=== PATIENT | male | born 1945 | race Caucasian/White ===

== ENCOUNTER 2022-12-30 15:44 | Observation (INO) | payer MEDICARE, OTHER ==
[2022-12-30] VITALS (9 sets, daily range): BP systolic 132–156; BP diastolic 50–75
[~2022-12-30] VITALS: Ht 180.3 cm; Wt 115.9 kg
[2022-12-30] MEDS ORDERED: NS IV 1000 ML 1,000 ML IV STA (16:02)
[2022-12-30 16:15] LABS: BASOPHILS # (AUTO) 0.1 10^3/uL (0.0-0.1); BASOPHILS % (AUTO) 1 % (0-10); EOSINOPHILS # (AUTO) 0.4 10^3/uL (0.0-0.3); EOSINOPHILS % (AUTO) 6 % (0-10); HEMATOCRIT 41 % (40-54); HEMOGLOBIN 13.8 g/dL (13.3-17.7); LYMPHOCYTES # (AUTO) 1.3 10^3/uL (1.0-4.0); LYMPHOCYTES % (AUTO) 22 % (12-44); MEAN CORPUSCULAR HEMOGLOBIN 29 pg (25-34); MEAN CORPUSCULAR HGB CONC 34 g/dL (32-36); MEAN CORPUSCULAR VOLUME 88 fL (80-99); MEAN PLATELET VOLUME 9.9 fL (9.0-12.2); MONOCYTES # (AUTO) 0.4 10^3/uL (0.0-1.0); MONOCYTES % (AUTO) 7 % (0-12); NEUTROPHILS # (AUTO) 3.9 10^3/uL (1.8-7.8); NEUTROPHILS % (AUTO) 64 % (42-75); PLATELET COUNT 201 10^3/uL (130-400); WHITE BLOOD COUNT 6.1 10^3/uL (4.3-11.0)
[2022-12-30 16:22] LABS: PROTHROMBIN TIME PATIENT 13.9 SEC (12.2-14.7)
--- NOTE | 2022-12-30 16:26 | ED General ---
General Stated Complaint: FATIGUE,SOB,COUGH Source of Information: Patient, Old Records (prior ECG tracings from [facility]), Spouse History of Present Illness Date Seen by Provider: Dec 30, 2022 Time Seen by Provider: 15:48 Initial Comments 77-year-old male presenting with complaints of not feeling well for the last week. He states he has had fatigue and shortness of breath with occasional cough. He did have 2 episodes of diarrhea earlier this morning. While coughing he had some central and right-sided chest pain this morning. This resolved when he stopped coughing. He denies having fever, chills, nausea, vomiting, blood in his stool, blood in his urine. He has a history of high blood pressure and takes lisinopril, amlodipine, metoprolol for controlling that. He denies allergies to medications. He denies having any history of cardiac problems. He had been to urgent care last week because of the symptoms and they had performed an electrocardiogram as well as chest x-ray and COVID swab. He states that he was told that all looked okay and he was to follow-up with [facility] for additional evaluation. However when he called to get an appointment with her they did not have any openings until January so he went back today and they advised him to come to the emergency department for further testing beyond what they have. They were concerned that he might be having acute coronary syndrome causing his symptoms. Patient states he has no chest pain currently and is not feeling short of breath or coughing. He reports he does continue to feel fatigued and drained currently. Timing/Duration: 1 Week Severity: Moderate Associated Systoms: Chest Pain (this am with coughing), Cough; No Diaphoresis, No Fever/Chills, No Headaches; Loss of Appetite, Malaise; No Nausea/Vomiting, No Rash, No Seizure; Shortness of Air; No Syncope; Weakness (generalized) Allergies and Home Medications Allergies Coded Allergies: No Known Drug Allergies (Unverified , 12/30/22) Patient Home Medication List Home Medication List Reviewed: Yes Review of Systems Review of Systems Constitutional: No chills, No fever EENTM: no symptoms reported Respiratory: see HPI Cardiovascular: see HPI Gastrointestinal: see HPI, diarrhea (x 2 this am); No nausea, No vomiting Genitourinary: No dysuria Musculoskeletal: no symptoms reported Skin: No rash Psychiatric/Neurological: See HPI; Denies Headache Past Yderyua-Mmtwjr-Chxwbn Hx Patient Social History Tobacco Use?: No Use of E-Cig and/or Vaping dev: No Substance use?: No Past Medical History Surgery/Hospitalization HX: Hypertension Physical Exam Vital Signs Vital Signs - First Documented 12/30/22 15:47 Temp 36.7 Pulse 86 Resp 20 B/P (MAP) 156/46 (82) Pulse Ox 97 O2 Delivery Room Air Capillary Refill : Height, Weight, BMI Height: '" Weight: lbs. oz. kg; BMI Method: General Appearance: No Apparent Distress, WD/WN HEENT: PERRL/EOMI, Pharynx Normal Neck: Full Range of Motion, Normal Inspection, Non Tender, Supple Respiratory: Chest Non Tender, Lungs Clear, Normal Breath Sounds, No Accessory Muscle Use, No Respiratory Distress Cardiovascular: Regular Rate, Rhythm, Normal Peripheral Pulses, Systolic Murmur (2/6 murmur) Gastrointestinal: Normal Bowel Sounds, No Pulsatile Mass, Non Tender, Soft Rectal: Deferred Back: No CVA Tenderness Extremity: Normal Capillary Refill, Normal Inspection, No Pedal Edema Neurologic/Psychiatric: Alert, Oriented x3, acid pumper II-XII Norm as Tested Skin: Normal Color, Warm/Dry Progress/Results/Core Measures Suspected Sepsis SIRS Temperature: Pulse: Respiratory Rate: Laboratory Tests 12/30/22 16:03: White Blood Count 6.1 Blood Pressure / Mean: Laboratory Tests 12/30/22 16:03: Creatinine 1.98H, INR Comment 1.0, Platelet Count 201, Total Bilirubin 0.8 Results/Orders Lab Results Laboratory Tests Test 12/30/22 16:03 Range/Units White Blood Count 6.1 4.3-11.0 10^3/uL Red Blood Count 4.69 4.30-5.52 10^6/uL Hemoglobin 13.8 13.3-17.7 g/dL Hematocrit 41 40-54 % Mean Corpuscular Volume 88 80-99 fL Mean Corpuscular Hemoglobin 29 25-34 pg Mean Corpuscular Hemoglobin Concent 34 32-36 g/dL Red Cell Distribution Width 13.2 10.0-14.5 % Platelet Count 201 130-400 10^3/uL Mean Platelet Volume 9.9 9.0-12.2 fL Immature Granulocyte % (Auto) 0 % Neutrophils (%) (Auto) 64 42-75 % Lymphocytes (%) (Auto) 22 12-44 % Monocytes (%) (Auto) 7 0-12 % Eosinophils (%) (Auto) 6 0-10 % Basophils (%) (Auto) 1 0-10 % Neutrophils # (Auto) 3.9 1.8-7.8 10^3/uL Lymphocytes # (Auto) 1.3 1.0-4.0 10^3/uL Monocytes # (Auto) 0.4 0.0-1.0 10^3/uL Eosinophils # (Auto) 0.4 H 0.0-0.3 10^3/uL Basophils # (Auto) 0.1 0.0-0.1 10^3/uL Immature Granulocyte # (Auto) 0.0 0.0-0.1 10^3/uL Prothrombin Time 13.9 12.2-14.7 SEC INR Comment 1.0 0.8-1.4 Activated Partial Thromboplast Time 29 24-35 SEC Sodium Level 141 135-145 MMOL/L Potassium Level 4.1 3.6-5.0 MMOL/L Chloride Level 109 H 98-107 MMOL/L Carbon Dioxide Level 18 L 21-32 MMOL/L Anion Gap 14 5-14 MMOL/L Blood Urea Nitrogen 44 H 7-18 MG/DL Creatinine 1.98 H 0.60-1.30 MG/DL Estimat Glomerular Filtration Rate 35 BUN/Creatinine Ratio 22 Glucose Level 123 H 70-105 MG/DL Calcium Level 8.8 8.5-10.1 MG/DL Corrected Calcium 9.3 8.5-10.1 MG/DL Magnesium Level 2.5 H 1.6-2.4 MG/DL Total Bilirubin 0.8 0.1-1.0 MG/DL Aspartate Amino Transf (AST/SGOT) 15 5-34 U/L Alanine Aminotransferase (ALT/SGPT) 10 0-55 U/L Alkaline Phosphatase 67 40-136 U/L Troponin I 0.45 *H <0.30 NG/ML Pro-B-Type Natriuretic Peptide 67620.0 H <450.0 PG/ML Total Protein 6.7 6.4-8.2 GM/DL Albumin 3.4 3.2-4.5 GM/DL Lipase 22 8-78 U/L My Orders Orders - BILLY RIVERA MD Cbc With Automated Diff (12/30/22 16:02) Magnesium (12/30/22 16:02) Ekg Tracing (12/30/22 16:02) Comprehensive Metabolic Panel (12/30/22 16:02) Protime With Inr (12/30/22 16:02) Partial Thromboplastin Time (12/30/22 16:02) O2 (12/30/22 16:02) Monitor-Rhythm Ecg Trace Only (12/30/22 16:02) Ed Iv/Invasive Line Start (12/30/22 16:02) Lipase (12/30/22 16:02) Troponin I Fs (12/30/22 16:02) Probnp Fs (12/30/22 16:02) Ns Iv 1000 Ml (Sodium Chloride 0.9%) (12/30/22 16:02) Aspirin Chewable Tablet (Baby Aspirin Ch (12/30/22 16:39) Chest 1 View Ap/Pa Only (12/30/22 17:03) Furosemide Injection (Lasix Injection) (12/30/22 17:03) Ed Admission (Communication) (12/30/22 17:10) Vital Signs/I&O 12/30/22 12/30/22 12/30/22 15:47 15:47 15:47 Temp 36.7 Pulse 86 Resp 20 B/P (MAP) 156/46 (82) Pulse Ox 97 O2 Delivery Room Air Room Air Room Air Capillary Refill : Progress Note #1: Progress Note Potential diagnosis of myocardial infarction, hypertension, COVID, viral illness, electrolyte abnormality, renal failure, hepatic failure. Obtain electrocardiogram and place patient on cardiac cardiac monitor. On my personal interpretation and his initial cardiac cardiac monitor showed sinus rhythm with a heart rate in the 80s. His electrocardiogram showed a sinus rhythm without ST elevation. His blood pressure was 154/46. His oxygen saturation was 96 to 98% on room air and he was breathing 14-16 times a minute. He was not febrile in the emergency department. Will obtain peripheral IV access and send labs for complete blood count, comprehensive metabolic profile, coagulation factors, troponin, proBNP, magnesium. Since he had 2 chest x-rays within the last 5 or 6 days through [facility] and they read out as normal will defer x-ray for now. Administer normal saline 1 L IV fluid bolus for hydration since he did have some diarrhea today and has not been wanting to eat or drink in the last week. Progress Note #2: Time: 16:35 Progress Note Lab called to report that his troponin was elevated to 0.45. Complete blood count had a normal white blood cell count of 6.1 and hemoglobin 13.8 with platelets of 201. His coagulation factors were normal with a pro time of 13.9 and INR of 1 and a PTT of 29. His comprehensive metabolic profile did not show acute electrolyte abnormality other than he had elevated BUN of 44, creatinine 1.98 and glucose of 123. His lipase was normal at 22. His magnesium was slightly elevated to 2.5. Ordered aspirin 324 mg p.o. x1 with him having the elevation of his troponin. We will check with Dr. Arellano, the on-call sheet turner, about his elevated troponin and not feeling well for this last week. Will check with the patient to see if he has been told that he has renal insufficiency in the past or if his BUN and creatinine might be elevated due to dehydration. Progress Note #3: Progress Note Patient and spouse deny having any known history of renal insufficiency or heart failure. He did request that I speak with his crpojnma-ww-sub, Rochelle Espinoza, who is a nurse practitioner in [place]. Initially he was asking about being admitted and elevate the however when advised that he would likely be in the hospital just 24 to 48 hours and that in general insurance prefers to cover transport to the closest appropriate facility and he might end up with a larger financial responsibility if he went north. After reviewing these things with the patient and spouse they were agreeable to going to [place] and seeing Dr. Arellano and Dr. Au. I did advise him that if things changed or he had new symptoms or abnormal findings that he might require additional stay or treatment but initially hopefully things remained stable and he improves with treatment and could be discharged and 24 to 48 hours with follow-up. ECG Initial ECG Impression Date: Dec 30, 2022 Initial ECG Impression Time: 16:19 Initial ECG Rate: 86 Initial ECG Rhythm: Normal Sinus Initial ECG Comparisson: Changed (Prior tracings from [facility] had artifact and wander making them difficult to interpret. This one did not have artifact and wanter present) Comment On my personal interpretation and review of his electrocardiogram showed sinus rhythm with a heart rate of [address] interval [address] elevation. He had QT interval 373 ms and a QTc interval 417 ms. Overall appears improved from tracings done earlier today at [facility] showing artifact and baseline wander. Diagnostic Imaging Diagonstic Imaging: Xray Plain Films/CT/US/NM/MRI: chest Comments [facility] [place] NAME: ELISE ESPINOZA [facility] REC#: [id number] PT STATUS: REG ER : 1945 PHYSICIAN: BILLY RIVERA MD ADMIT DATE: 12/30/22/ER FS Draft Date of Exam:12/30/22 CHEST 1 VIEW AP/PA ONLY INDICATION: Shortness of breath. EXAM: Portable chest at 5:17 PM FINDINGS: The heart size and pulmonary vascularity are normal. The lungs are clear. There are no effusions or pneumothoraces. IMPRESSION: Negative chest. Dictated on workstation # [id number] Dict: 12/30/221718 Trans: 12/30/22 1724 [facility] [id number] Interpreted by: REINALDO ALLAN MD Electronically signed by: Reviewed: Reviewed by Me (I reviewed the radiologist report at [id number]) Departure Communication (Admissions) Time/Spoke to Admitting Phy: 17:[address] Au, the [facility] hospitalist, about the patient's presentation with illness over the last week, no ST elevation or acute ischemic changes on his EKG, shortness of breath. He now has findings for acute congestive heart failure and fluid overload. He has mild elevation of his troponin to 0.45 and his creatinine to 1.98. After discussion with sheet turner Dr. Zaragoza he is getting dose of Lasix to help with the elevated proBNP. It is felt that the heart failure may be the source for his mild elevation of troponin. Plan to admit for echocardiogram and serial cardiac enzymes and further cardiac monitoring as well as cardiology consult. Dr. Hunter did request an echocard iogram for tomorrow morning and make sure the patient is taking aspirin every day as well as metoprolol every day and get him started on Lasix as a diuretic every day. Patient already is taking metoprolol and aspirin every day. She accepted him for admission to cardiac stepdown bed. Time/Spoke to Consulting Phy: 17:[address] Arellano, sheet turner on-call for Danita Cordon. I reviewed the patient's presentation with him feeling well over the last week and having no acute ST elevation but did have a bump in his troponin to 0.45, proBNP was over 17,000, creatinine up to 1.98. He recommended giving Lasix of 60 mg IV now and continue Lasix daily. Obtain echocardiogram in the morning. Make sure he is taking metoprolol and aspirin daily. He already takes metoprolol 75 mg a day as well as a baby aspirin every day. He will follow the patient in consult with the [facility] service. Impression Primary Impression: Elevated troponin I level Additional Impressions: Acute kidney injury Acute congestive heart failure Qualified Codes: I50.9 - Heart failure, unspecified Disposition: 30 STILL A PATIENT Condition: Stable Admissions Decision to Admit Reason: Admit from ER (General) Decision to Admit/Date: Dec 30, 2022 Time/Decision to Admit Time: 17:08 Departure-Patient Inst. [place] [facility] [place] Primary Care Physician PIO DE LA CRUZ APRN (Family) Primary Care Physician BILLY RIVERA MD Dec 30, 2022 16:26
[2022-12-30 16:32] LABS: CALCIUM 8.8 MG/DL (8.5-10.1); CREATININE SERUM 1.98 MG/DL (0.60-1.30); MAGNESIUM 2.5 MG/DL (1.6-2.4); POTASSIUM 4.1 MMOL/L (3.6-5.0)
[2022-12-30 16:33] LABS: ALBUMIN 3.4 GM/DL (3.2-4.5); BILIRUBIN,TOTAL 0.8 MG/DL (0.1-1.0); TOTAL PROTEIN 6.7 GM/DL (6.4-8.2)
[2022-12-30] MEDS ORDERED: ASPIRIN 81 MG CHEW (CHILDREN'S ASA) PO STA (16:39)
[2022-12-30] MEDS ORDERED: FUROSEMIDE 40 MG/4 ML INJ (LASIX) IVP STA (17:03)
--- NOTE | 2022-12-30 17:24 | Diagnostic Imaging Report ---
INDICATION: Shortness of breath. EXAM: Portable chest at 5:17 PM FINDINGS: The heart size and pulmonary vascularity are normal. The lungs are clear. There are no effusions or pneumothoraces. IMPRESSION: Negative chest. Dictated by: Dictated on workstation # [id number]
[2022-12-30] MEDS ORDERED: NITROGLYCERIN 0.4 MG SL TABS BTL 25'S SL PRN (20:15)
[2022-12-30] MEDS ORDERED: ONDANSETRON 4 MG/2 ML (SDV) Z0FRAN IVP PRN (20:15)
[2022-12-30] MEDS ORDERED: PATIENT MAY USE OWN MEDS, ALL PO SCH (20:15)
[2022-12-31] VITALS (7 sets, daily range): BP systolic 119–147; BP diastolic 51–65
[2022-12-31 10:31] LABS: CALCIUM 8.5 MG/DL (8.5-10.1); CREATININE SERUM 1.93 MG/DL (0.60-1.30); POTASSIUM 4.3 MMOL/L (3.6-5.0)
[2022-12-31] MEDS ORDERED: LISI40TA9 PO (11:32)
[2022-12-31] MEDS ORDERED: METO50TA7 PO (11:32)
[2022-12-31] MEDS ORDERED: AMLO-251 PO (11:32)
--- NOTE | 2022-12-31 11:32 | History & Physical ---
HPI History of Present Illness: 77 yo male reports he came to the hospital because he was told to. he started not feeling well, initially thought he might have COVID, felt short of breath, low energy, no appetite. He had diarrhea as well. Next day he had similar symptoms. Went to urgent care and had EKG and CXR there that he reports were negative. STAFF DEVELOPMENT NURSE told him that though they hadn't found anything he had symptoms concerning for possible heart issues and suggested he see his primary, which he wasn't able to get into due to being closed. He was gasping for air, and when he checked his SpO2 at home it was 96-98, occasionally as low as 93%, so he felt reassured by that. When he called his primary they couldn't get him in until Feb 05 and so he saw someone else on Friday (yesterday) and reported things were okay, but repeated CXR and EKG, hasn't heard report of CXR but was told EKG was different from the one on Friday so he was sent to the ER in [place] where he was told he had heart failure. He denies history of renal problems, but clinic chart does list CKD3. Source: patient, family Date seen by provider: Dec 31, 2022 Time Seen by Provider: 11:30 Attending Physician [facility] PCP Admitting Physician: Taurus Au MD Attending Physician: Taurus Au MD Consult Date of Admission Dec 30, 2022 at 19:22 Home Medications Home Medications Reviewed patient Home Medication Reconciliation performed by pharmacy medication reconciliations windmill technician and/or nursing. Patients Allergies have been reviewed. 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 Broken ankle repair with growth plate involvement Family Medical History Significant Family History: Heart Disease (father angina), Cancer (brother colon cancer, mother metastatic breast cancer) Review of Systems ([facility]) Constitutional: No fever EENTM: No nose congestion, No throat pain Respiratory: short of breath Cardiovascular: No chest pain Gastrointestinal: No abdominal pain, No constipation; diarrhea (now resolved); No nausea, No vomiting Genitourinary: No dysuria Musculoskeletal: No joint pain, No muscle pain Skin: No rash Reviewed Test Results Reviewed Test Results Lab Laboratory Tests Test 12/30/22 16:03 12/30/22 20:54 12/31/22 10:05 Range/Units White Blood Count 6.1 4.3-11.0 10^3/uL Red Blood Count 4.69 4.30-5.52 10^6/uL Hemoglobin 13.8 13.3-17.7 g/dL Hematocrit 41 40-54 % Mean Corpuscular Volume 88 80-99 fL Mean Corpuscular Hemoglobin 29 25-34 pg Mean Corpuscular Hemoglobin Concent 34 32-36 g/dL Red Cell Distribution Width 13.2 10.0-14.5 % Platelet Count 201 130-400 10^3/uL Mean Platelet Volume 9.9 9.0-12.2 fL Immature Granulocyte % (Auto) 0 % Neutrophils (%) (Auto) 64 42-75 % Lymphocytes (%) (Auto) 22 12-44 % Monocytes (%) (Auto) 7 0-12 % Eosinophils (%) (Auto) 6 0-10 % Basophils (%) (Auto) 1 0-10 % Neutrophils # (Auto) 3.9 1.8-7.8 10^3/uL Lymphocytes # (Auto) 1.3 1.0-4.0 10^3/uL Monocytes # (Auto) 0.4 0.0-1.0 10^3/uL Eosinophils # (Auto) 0.4 H 0.0-0.3 10^3/uL Basophils # (Auto) 0.1 0.0-0.1 10^3/uL Immature Granulocyte # (Auto) 0.0 0.0-0.1 10^3/uL Prothrombin Time 13.9 12.2-14.7 SEC INR Comment 1.0 0.8-1.4 Activated Partial Thromboplast Time 29 24-35 SEC Sodium Level 141 143 135-145 MMOL/L Potassium Level 4.1 4.3 3.6-5.0 MMOL/L Chloride Level 109 H 112 H 98-107 MMOL/L Carbon Dioxide Level 18 L 21 21-32 MMOL/L Anion Gap 14 10 5-14 MMOL/L Blood Urea Nitrogen 44 H 42 H 7-18 MG/DL Creatinine 1.98 H 1.93 H 0.60-1.30 MG/DL Estimat Glomerular Filtration Rate 35 36 BUN/Creatinine Ratio 22 22 Glucose Level 123 H 104 70-105 MG/DL Calcium Level 8.8 8.5 8.5-10.1 MG/DL Corrected Calcium 9.3 8.5-10.1 MG/DL Magnesium Level 2.5 H 1.6-2.4 MG/DL Total Bilirubin 0.8 0.1-1.0 MG/DL Aspartate Amino Transf (AST/SGOT) 15 5-34 U/L Alanine Aminotransferase (ALT/SGPT) 10 0-55 U/L Alkaline Phosphatase 67 40-136 U/L Troponin I 0.45 *H 0.790 *H <0.028 NG/ML Pro-B-Type Natriuretic Peptide 80108.0 H <450.0 PG/ML Total Protein 6.7 6.4-8.2 GM/DL Albumin 3.4 3.2-4.5 GM/DL Lipase 22 8-78 U/L Radiology CXR: IMPRESSION: Negative chest Physical Exam-([facility]) Physical Exam Vital Signs VS - Last 72 Hours, by Label 12/30/22 12/30/22 12/30/22 12/30/22 15:47 15:47 15:47 18:36 Temp 36.7 36.8 Pulse 86 79 Resp 20 17 B/P (MAP) 156/46 (82) 134/71 Pulse Ox 97 98 O2 Delivery Room Air Room Air Room Air Room Air 12/30/22 12/30/22 12/30/22 12/30/22 19:32 19:35 19:38 19:45 Pulse 100 106 104 101 Resp 20 B/P (MAP) 152/67 (104) 150/65 (105) 156/66 (111) O2 Delivery Room Air Room Air Room Air 12/30/22 12/30/22 12/30/22 12/30/22 20:14 20:15 20:30 20:45 Temp 36.3 Pulse 103 101 93 97 Resp 21 28 23 B/P (MAP) 152/67 (95) 149/75 (108) 135/50 (87) 141/51 (76) Pulse Ox 97 94 O2 Delivery Room Air Room Air Room Air Room Air 7/3/12/30/22 12/30/22 12/31/22 21:00 21:12 22:00 00:00 Pulse 106 99 84 Resp 35 12 B/P (MAP) 135/55 (92) 132/54 (80) 130/52 (78) Pulse Ox 97 O2 Delivery Room Air Room Air Room Air Room Air 12/31/22 12/31/22 12/31/22 12/31/22 01:00 04:00 07:07 07:41 Temp 36.0 36.1 Pulse 77 105 83 80 Resp 21 16 B/P (MAP) 119/52 (74) 140/65 (90) Pulse Ox 97 95 O2 Delivery Room Air Room Air 12/31/22 12/31/22 11:28 12:22 Temp 36.2 Pulse 100 76 Resp 18 B/P (MAP) 146/56 (86) Pulse Ox 96 O2 Delivery Room Air Capillary Refill : Less Than 3 Seconds General Appearance: WD/WN, no apparent distress Respiratory: lungs clear Cardiovascular: regular rate, rhythm, diastolic murmur, gallop/S3 Gastrointestinal: normal bowel sounds, non tender, soft Extremities: no pedal edema Neurologic/Psychiatric: alert, normal mood/affect Skin: warm/dry Assessment/Plan Assessment/Plan Admission Status: Observation (1) Elevated brain natriuretic peptide (BNP) level Status: Acute Assessment & Plan: Possible new CHF, echo pending. CXR without abnormality and no peripheral edema. (2) Elevated troponin Status: Acute Assessment & Plan: Increasing, but with acute on chronic CKD and no ST elevation. Appreciate Cardiology recommendations. Started on aspirin. (3) Hypertension Status: Chronic Assessment & Plan: Resume home meds. Qualifiers: Qualified Codes: I10 - Essential (primary) hypertension (4) Hyperlipidemia Status: Chronic (5) Obstructive sleep apnea Status: Chronic (6) CKD (chronic kidney disease) Status: Chronic Assessment & Plan: Cr in clinic last 2 years from 1.4 to 1.6. Qualifiers: Qualified Codes: N18.32 - Chronic kidney disease, stage 3b (7) DVT prophylaxis Status: Acute Assessment & Plan: Enoxaparin TAURUS AU MD Dec 31, 2022 11:32
[2022-12-31] MEDS ORDERED: ASPI-1238 PO (11:38)
[2022-12-31] MEDS: ASPIRIN 325 MG (5 GR) TABLET PO SCH (11:45)
--- NOTE | 2022-12-31 12:57 | Consultation-Cardiology ---
HPI-Cardiology Cardiology Consultation: Date of Consultation 12/31/22 Time Seen by a Provider: 12:30 Date of Admission Attending Physician Diagonal/Pending Sale To [facility] Admitting Physician Admitting Physician: Taurus Au MD Attending Physician: Taurus Au MD Consulting Physician BIJAN VAUGHN MD, MA, FACP, FACC, FSCAI, CCDS Physician requesting Card consult: Dr Au HPI: Chief Complaint: Shortness of breath 77 yo man with increasing shortness of breath and gen weakness and malaise for several days. Went to Urgent Care and was advised to be evaluated at the ER. Went to [facility] ER, and was found to have CHF (elev BNP and mildly elevated troponin) and hospitalized to Dr Au. Has been treated with diuretics and feels much better. Denies cp or palp or syncope. Notes mild, bilateral leg swelling. No n/v/d Review of Systems-Cardiology Review of Systems Constitutional: malaise, tiredness; No weight loss, No weight gain Eyes: No vision change Ears/Nose/Throat: No ear discharge, No nasal drainage, No recent hearing loss Respiratory: As described under HPI Cardiovascular: As described under HPI Gastrointestinal: As described under HPI Genitourinary: No dysuria; hematuria; No urine frequency changes Musculoskeletal: No back pain; joint pain Skin: No rash, No ulcerations Psychiatric/Neurological: No seizure, No focal weakness, No syncope Hematologic: No bleeding abnormalities [id number] Hx Patient Social History Smoking Status: Former Smoker (3 months while in the service) Alcohol Use?: No Pt feels they are or have been: No Past Medical History PMH As described under Assessment. Family Medical History Family Medical History: Reports that father had angina (in his 40s) but does not corornary interventions. Allergies and Home Medications Allergies Coded Allergies: No Known Drug Allergies (Unverified , 12/30/22) Patient Home Medication List Home Medication List Reviewed: Yes Amlodipine Besylate (Amlodipine Besylate) 10 Mg Tablet, 10 MG PO DAILY, (Reported) Entered as Reported by: TAURUS AU on 12/31/22 1132 Last Action: New Order Aspirin (Aspirin EC) 81 Mg Tablet.dr, 81 MG PO DAILY, (Reported) Entered as Reported by: TAURUS AU on 12/31/22 1138 Last Action: New Order Lisinopril (Lisinopril) 40 Mg Tablet, 40 MG PO DAILY, (Reported) Entered as Reported by: TAURUS AU on 12/31/221131 Last Action: New Order Metoprolol Succinate (Metoprolol Succinate) 50 Mg Tab.er.24h, 50 MG PO DAILY, (Reported) Entered as Reported by: TAURUS AU on 12/31/221131 Last Action: New Order Physical Exam-Cardiology Physical Exam Vital Signs/I&O 12/31/22 12/31/22 12/31/22 12/31/22 01:00 04:00 07:07 07:41 Temp 36.0 36.1 Pulse 77 105 83 80 Resp 21 16 B/P (MAP) 119/52 (74) 140/65 (90) Pulse Ox 97 95 O2 Delivery Room Air Room Air 12/31/22 12/31/22 11:28 12:22 Temp 36.2 Pulse 100 76 Resp 18 B/P (MAP) 146/56 (86) Pulse Ox 96 O2 Delivery Room Air 12/31/22 00:00 Intake Total 240 ml Output Total 450 ml Balance -210 ml Capillary Refill : Less Than 3 Seconds Constitutional: AAO x 3, well-developed, well-nourished HEENT: EOMI, hearing is well preserved; No xanthelasmas are seen Neck: carotid pulses are 2 + bilaterally, with good upstrokes Respiratory: No accessory muscle use; chest expansion is symmetric, chest is bilaterally symmetric Cardiovascular: regular rate-rhythm, S1 and S2, systolic murmur (soft DAISY at card) Gastrointestinal: No tender; soft; No guarding, No rebound; audible bowel sounds Extremities: No clubbing, No cyanosis, No significant edema Neurologic/Psychiatric: oriented x 3, other (moves all limbs equally) Skin: No rash on exposed areas, No ulcerations on exposed areas Data Review Labs Laboratory Tests 12/30/22 16:03: White Blood Count 6.1, Red Blood Count 4.69, Hemoglobin 13.8, Hematocrit 41, Mean Corpuscular Volume 88, Mean Corpuscular Hemoglobin 29, Mean Corpuscular Hemoglobin Concent 34, Red Cell Distribution Width 13.2, Platelet Count 201, Mean Platelet Volume 9.9, Immature Granulocyte % (Auto) 0, Neutrophils (%) (Auto) 64, Lymphocytes (%) (Auto) 22, Monocytes (%) (Auto) 7, Eosinophils (%) (Auto) 6, Basophils (%) (Auto) 1, Neutrophils # (Auto) 3.9, Lymphocytes # (Auto) 1.3, Monocytes # (Auto) 0.4, Eosinophils # (Auto) 0.4H, Basophils # (Auto) 0.1, Immature Granulocyte # (Auto) 0.0, Prothrombin Time 13.9, INR Comment 1.0, Activated Partial Thromboplast Time 29, Sodium Level 141, Potassium Level 4.1, Chloride Level 109H, Carbon Dioxide Level 18L, Anion Gap 14, Blood Urea Nitrogen 44H, Creatinine 1.98H, Estimat Glomerular Filtration Rate 35, BUN/Creatinine Ratio 22, Glucose Level 123H, Calcium Level 8.8, Corrected Calcium 9.3, Magnesium Level 2.5H, Total Bilirubin 0.8, Aspartate Amino Transf (AST/SGOT) 15, Alanine Aminotransferase (ALT/SGPT) 10, Alkaline Phosphatase 67, Troponin I 0.45*H, Pro-B-Type Natriuretic Peptide 40029.0H, Total Protein 6.7, Albumin 3.4, Lipase 22 12/30/22 20:54: Troponin I 0.790*H 12/31/22 10:05: Sodium Level 143, Potassium Level 4.3, Chloride Level 112H, Carbon Dioxide Level 21, Anion Gap 10, Blood Urea Nitrogen 42H, Creatinine 1.93H, Estimat Glomerular Filtration Rate 36, BUN/Creatinine Ratio 22, Glucose Level 104, Calcium Level 8.5 Laboratory Tests 12/30/22 16:03 12/31/22 10:05 A/P-Cardiology Assessment/Admission Diagnosis Ac CHF, probably diastolic, etiology undetermined Mild troponin elevation, probably type 2 MD due to CHF Hypertension Obesity with hypoventilation syndrome (family reports untreated AJAY) Discussion and Recomendations * Diuretic * BB * Echo * MPI * Monitor labs * Sleep studies advised * Questions answered * Further recs based on hosp course BIJAN VAUGHN MD [facility] CCDS Dec 31, 2022 12:57
[2022-12-31] MEDS ORDERED: meTOproloL SUCCINATE 50 MG (TOPROL XL) TAB PO ONE (13:15)
[2022-12-31] MEDS: ENOXAPARIN 40 MG/0.4 ML (LOVENOX) SYR SC SCH (14:56)
[2022-12-31] MEDS ORDERED: CLOPIDOGREL 75 MG (PLAVIX) TABLET PO ONE (19:00)
[2023-01-01] VITALS (7 sets, daily range): BP systolic 128–171; BP diastolic 45–69
[2023-01-01 04:10] LABS: HEMATOCRIT 43 % (40-54); HEMOGLOBIN 14.1 g/dL (13.3-17.7); MEAN CORPUSCULAR HEMOGLOBIN 30 pg (25-34); MEAN CORPUSCULAR HGB CONC 33 g/dL (32-36); MEAN CORPUSCULAR VOLUME 89 fL (80-99); MEAN PLATELET VOLUME 9.7 fL (9.0-12.2); PLATELET COUNT 231 10^3/uL (130-400); WHITE BLOOD COUNT 7.4 10^3/uL (4.3-11.0)
[2023-01-01 04:16] LABS: POTASSIUM 4.1 MMOL/L (3.6-5.0)
[2023-01-01 04:17] LABS: CALCIUM 8.5 MG/DL (8.5-10.1)
[2023-01-01 04:22] LABS: CREATININE SERUM 1.79 MG/DL (0.60-1.30)
[2023-01-01] MEDS ORDERED: CATHETER FLUSH 10 ML SYR IVP PRN (07:45)
[2023-01-01] MEDS ORDERED: REGADENOSON 0.4 MG/5 ML SYR (LEXISCAN) IV ONE ×2 (08:44→09:15)
[2023-01-01] MEDS ORDERED: CLOPIDOGREL 75 MG (PLAVIX) TABLET PO SCH (09:00)
--- NOTE | 2023-01-01 09:45 | Progress Note - Cardiology ---
Cardiology SOAP Progress Note Subjective: No c/o CP, palpitations or SOB Objective: I&O/Vital Signs 01/01/23 01/01/23 01/01/23 01/01/23 00:00 01:00 04:00 07:04 Pulse 67 74 74 68 Resp 25 B/P (MAP) 128/54 (78) 133/48 (76) Pulse Ox 97 92 O2 Delivery Room Air Room Air 01/01/23 07:50 Temp 36.2 Pulse 86 Resp 18 B/P (MAP) 171/65 (100) Pulse Ox 95 O2 Delivery Room Air 01/01/23 00:00 Intake Total 250 ml Output Total 250 ml Balance 0 ml Constitutional: AAO x 3, well-developed, well-nourished Respiratory: No accessory muscle use; chest expansion is symmetric, chest is bilaterally symmetric Cardiovascular: regular rate-rhythm, S1 and S2, systolic murmur (soft DAISY at card) Gastrointestional: No tender; soft; No guarding, No rebound; audible bowel sounds Extremities: No clubbing, No cyanosis, No significant edema Neurologic/Psychiatric: oriented x 3, other (moves all limbs equally) Skin: No rash on exposed areas, No ulcerations on exposed areas Results/Procedures: Labs Laboratory Tests 12/31/22 10:05: Sodium Level 143, Potassium Level 4.3, Chloride Level 112H, Carbon Dioxide Level 21, Anion Gap 10, Blood Urea Nitrogen 42H, Creatinine 1.93H, Estimat Glomerular Filtration Rate 36, BUN/Creatinine Ratio 22, Glucose Level 104, Calcium Level 8.5 01/01/23 03:58: Sodium Level 144, Potassium Level 4.1, Chloride Level 114H, Carbon Dioxide Level 18L, Anion Gap 12, Blood Urea Nitrogen 43H, Creatinine 1.79H, Estimat Glomerular Filtration Rate 39, BUN/Creatinine Ratio 24, Glucose Level 111H, Calcium Level 8.5, White Blood Count 7.4, Red Blood Count 4.78, Hemoglobin 14.1, Hematocrit 43, Mean Corpuscular Volume 89, Mean Corpuscular Hemoglobin 30, Mean Corpuscular Hemoglobin Concent 33, Red Cell Distribution Width 13.2, Platelet Count 231, Mean Platelet Volume 9.7 Laboratory Tests 12/30/22 16:03 12/31/22 10:05 01/01/23 03:58 A/P: Assessment: Ac CHF, diastolic CHF, etiology undetermined - Echocardiogram of 12-31-22 showed mod concentric hypertrophy; LVEF 55-60%. Grade 2 diastolic dysfunction. LA mildly dilated. Mild MR. Mod AoR. PASP 40- 45 mmHg Mild troponin elevation, probably type 2 [place] due to CHF Pulmonary HTN - likely d/t AJAY (untreated) Hypertension Renal insufficiency of undetermined length of time - Cr improving Obesity with hypoventilation syndrome (family reports untreated AJAY) Plan: * Diuretics indicated * Continue BB * MPI - results pending (continue ASA and Plavix for now) * Monitor labs * Sleep studies advised as out pt * Further recs based on hosp course GHAZAL KENT Jan 01, 2023 09:45
[2023-01-01] MEDS: ASPIRIN 325 MG (5 GR) TABLET PO SCH (10:42)
[2023-01-01] MEDS: meTOproloL SUCCINATE 50 MG (TOPROL XL) TAB PO SCH (10:43)
[2023-01-01] MEDS: amLODIPine 10 MG (NORVASC) TAB PO SCH (10:43)
[2023-01-01] MEDS: ENOXAPARIN 40 MG/0.4 ML (LOVENOX) SYR SC SCH (15:53)
--- NOTE | 2023-01-01 16:34 | Progress Note ---
Subjective Subjective/Events-last exam Patient just got back from stress testing. States that he feels better then when he arrived. Denies any chest pain or shortness of breath. Ordering diet currently. Review of Systems General: Fatigue Pulmonary: No Dyspnea, No Cough Cardiovascular: Edema; No: Chest Pain, Palpitations Gastrointestinal: No: Nausea, Vomiting, Abdominal Pain, Diarrhea, Constipation Neurological: Weakness Objective Exam Last Set of Vital Signs Vital Signs Date Time Temp Pulse Resp B/P (MAP) Pulse Ox O2 Delivery O2 Flow Rate FiO2 01/01/23 15:52 36.4 80 20 143/45 (77) 96 Room Air Capillary Refill : Less Than 3 Seconds I&O Intake and Output 01/01/23 00:00 Intake Total 250 ml Output Total 950 ml Balance -700 ml Intake Oral 250 ml Output Urine Total 950 ml # Voids 2 # Bowel Movements 2 General: Alert, Oriented X3, No Acute Distress Lungs: Clear to Auscultation, Normal Air Movement Heart: Regular Rate, No Murmurs Abdomen: Normal Bowel Sounds, Soft, No Tenderness Extremities: No Tenderness/Swelling, Other (edema 1+) Neuro: Normal Speech Results/Procedures Lab Laboratory Tests 01/01/23 03:58: White Blood Count 7.4, Red Blood Count 4.78, Hemoglobin 14.1, Hematocrit 43, Mean Corpuscular Volume 89, Mean Corpuscular Hemoglobin 30, Mean Corpuscular Hemoglobin Concent 33, Red Cell Distribution Width 13.2, Platelet Count 231, Mean Platelet Volume 9.7, Sodium Level 144, Potassium Level 4.1, Chloride Level 114H, Carbon Dioxide Level 18L, Anion Gap 12, Blood Urea Nitrogen 43H, Creatinine 1.79H, Estimat Glomerular Filtration Rate 39, BUN/Creatinine Ratio 24, Glucose Level 111H, Calcium Level 8.5 Radiology CXR: IMPRESSION: Negative chest Assessment/Plan Assessment/Plan (1) Elevated brain natriuretic peptide (BNP) level Status: Acute Assessment & Plan: Possible new CHF, echo pending. CXR without abnormality and no peripheral edema. 01/01: Normal systolic function, Grade 2 diastolic dysfunction (2) Elevated troponin Status: Acute Assessment & Plan: Increasing, but with acute on chronic CKD and no ST elevation. Appreciate Cardiology recommendations. Started on aspirin. 01/01: Stress testing done today, awaiting results and cardiology recommendations (3) Hypertension Status: Chronic Assessment & Plan: Resume home meds. Qualifiers: Qualified Codes: I10 - Essential (primary) hypertension (4) Hyperlipidemia Status: Chronic (5) Obstructive sleep apnea Status: Chronic (6) CKD (chronic kidney disease) Status: Chronic Assessment & Plan: Cr in clinic last 2 years from 1.4 to 1.6. 01/01: Seems to be mildly elevated from baseline Qualifiers: Qualified Codes: N18.32 - Chronic kidney disease, stage 3b (7) DVT prophylaxis Status: Acute Assessment & Plan: Enoxaparin JHONNY SHEPHERD MD Jan 01, 2023 16:34
--- NOTE | 2023-01-01 19:09 | Progress Note - Cardiology ---
Cardiology SOAP Progress Note Subjective: Gen weakness and malaise Shortness of breath improving No n/v/d No focal weakness No palp or syncope No cp Objective: I&O/Vital Signs 01/01/23 01/01/23 01/01/23 01/01/23 07:50 11:48 12:11 15:52 Temp 36.2 36.2 36.4 Pulse 86 84 70 80 Resp 18 18 20 B/P (MAP) 171/65 (100) 151/57 (88) 143/45 (77) Pulse Ox 95 95 96 O2 Delivery Room Air Room Air Room Air 12/31/22 23:59 Intake Total 250 ml Output Total 250 ml Balance 0 ml Constitutional: AAO x 3, well-developed, well-nourished Respiratory: No accessory muscle use; chest expansion is symmetric, chest is bilaterally symmetric Cardiovascular: regular rate-rhythm, S1 and S2, systolic murmur (soft DAISY at card) Gastrointestional: No tender; soft; No guarding, No rebound; audible bowel sounds Extremities: No clubbing, No cyanosis, No significant edema Neurologic/Psychiatric: oriented x 3, other (moves all limbs equally) Skin: No rash on exposed areas, No ulcerations on exposed areas Results/Procedures: Labs Laboratory Tests 01/01/23 03:58: White Blood Count 7.4, Red Blood Count 4.78, Hemoglobin 14.1, Hematocrit 43, Mean Corpuscular Volume 89, Mean Corpuscular Hemoglobin 30, Mean Corpuscular Hemoglobin Concent 33, Red Cell Distribution Width 13.2, Platelet Count 231, Mean Platelet Volume 9.7, Sodium Level 144, Potassium Level 4.1, Chloride Level 114H, Carbon Dioxide Level 18L, Anion Gap 12, Blood Urea Nitrogen 43H, Creatinine 1.79H, Estimat Glomerular Filtration Rate 39, BUN/Creatinine Ratio 24, Glucose Level 111H, Calcium Level 8.5 Laboratory Tests 12/31/22 10:05 01/01/23 03:58 A/P: Assessment: Ac CHF, diastolic CHF, etiology undetermined - Echocardiogram of 12-31-22 showed mod concentric hypertrophy; LVEF 55-60%. Grade 2 diastolic dysfunction. LA mildly dilated. Mild MR. Mod AoR. PASP 40- 45 mmHg - MPI on 01-01-23: no significant ischemia or infarction, mod cardiomegaly, LVEF 57% Mild troponin elevation, probably type 2 [place] due to CHF Pulmonary HTN - likely d/t AJAY (untreated) Hypertension Renal insufficiency of undetermined length of time - Cr improving Obesity with hypoventilation syndrome (family reports untreated AJAY) Plan: * Diuretics indicated * Continue BB * MPI results discussed with pt. D/c Plavix * Monitor labs * Sleep studies advised as out pt * Ok to d/c from card standpoint. Outpt card f/u advised BIJAN VAUGHN MD FACP [facility]AC CCDS Jan 01, 2023 19:09
--- NOTE | 2023-01-01 20:43 | STRESS TEST ---
DATE OF SERVICE: 01/01/2023 RESTING AND POST REGADENOSON TECHNETIUM-99M TETROFOSMIN SPECT CT IMAGING ORDERING PHYSICIAN: Dr. Arellano. PRIMARY PHYSICIAN: [facility]. ATTENDING PHYSICIAN: Dr. Au. CLINICAL DIAGNOSIS: Congestive heart failure. Baseline images were carried out after injection of 10.77 mCi of technetium-99m tetrofosmin. This was followed by 0.4 mg regadenoson and 31.8 mCi of technetium-99m tetrofosmin for stress imaging. The electrocardiogram showed sinus rhythm with voltage for left ventricular hypertrophy at baseline. There was repolarization abnormality consistent with left ventricular hypertrophy and a strain pattern. The electrocardiogram did not change significantly with regadenoson infusion. Review of images at rest and following stress indicates moderate cardiomegaly. Left ventricular end-diastolic volume is 177 mL. TID is absent (1.06). Gated images show normal global left ventricular systolic function without distinct regional wall motion abnormality. Left ventricular ejection fraction is calculated to be 57%. There is no distinct evidence of any significant myocardial ischemia or infarction on this study. CONCLUSIONS: 1. No evidence of significant myocardial ischemia or infarction on this study. 2. Moderate cardiomegaly. 3. Well preserved global left systolic function with a calculated ejection fraction of 57%. Job ID: [id number] DocumentID: [id number] Dictated Date: 01/01/2023 17:27:45 Twx Operator Date: 01/01/2023 20:41:00 Dictated By: BIJAN ARELLANO MD; RUTH ANN; FACP; FACC;
[2023-01-02 03:48] VITALS: BP 126/46
[2023-01-02 04:48] LABS: BASOPHILS # (AUTO) 0.1 10^3/uL (0.0-0.1); BASOPHILS % (AUTO) 1 % (0-10); EOSINOPHILS # (AUTO) 0.9 10^3/uL (0.0-0.3); EOSINOPHILS % (AUTO) 13 % (0-10); HEMATOCRIT 41 % (40-54); HEMOGLOBIN 13.9 g/dL (13.3-17.7); LYMPHOCYTES # (AUTO) 1.5 10^3/uL (1.0-4.0); LYMPHOCYTES % (AUTO) 21 % (12-44); MEAN CORPUSCULAR HEMOGLOBIN 30 pg (25-34); MEAN CORPUSCULAR HGB CONC 34 g/dL (32-36); MEAN CORPUSCULAR VOLUME 89 fL (80-99); MEAN PLATELET VOLUME 10.2 fL (9.0-12.2); MONOCYTES # (AUTO) 0.5 10^3/uL (0.0-1.0); MONOCYTES % (AUTO) 6 % (0-12); NEUTROPHILS # (AUTO) 4.3 10^3/uL (1.8-7.8); NEUTROPHILS % (AUTO) 59 % (42-75); PLATELET COUNT 231 10^3/uL (130-400); WHITE BLOOD COUNT 7.3 10^3/uL (4.3-11.0)
[2023-01-02 05:06] LABS: ALBUMIN 3.3 GM/DL (3.2-4.5); POTASSIUM 4.3 MMOL/L (3.6-5.0)
[2023-01-02 05:07] LABS: CALCIUM 8.3 MG/DL (8.5-10.1)
[2023-01-02 05:08] LABS: TOTAL PROTEIN 6.3 GM/DL (6.4-8.2)
[2023-01-02 05:10] LABS: BILIRUBIN,TOTAL 0.5 MG/DL (0.1-1.0)
[2023-01-02 05:12] LABS: CREATININE SERUM 1.77 MG/DL (0.60-1.30)
[2023-01-02 05:20] LABS: BAND NEUTROPHILS 1 %; BASOPHILS % (MANUAL) 0 %; EOSINOPHILS % (MANUAL) 16 %; LYMPHOCYTES % (MANUAL) 23 %; MONOCYTES % (MANUAL) 8 %; NEUTROPHILS % (MANUAL) 52 %; RBC MORPH NORMAL
[2023-01-02 07:50] VITALS: BP 152/59
[2023-01-02] MEDS ORDERED: ASPI-999 PO (09:20)
--- NOTE | 2023-01-02 09:53 | Progress Note - Cardiology ---
Cardiology SOAP Progress Note Subjective: No weakness and malaise Shortness of breath has improved to usual baseline No n/v/d No focal weakness No palp or syncope No cp Objective: I&O/Vital Signs 01/01/23 01/01/23 01/01/23 01/01/23 22:00 23:00 23:26 23:52 Temp 36.4 Pulse 76 71 81 Resp 26 25 34 B/P (MAP) 133/54 (110) Pulse Ox 94 95 94 O2 Delivery Nasal Cannula Nasal Cannula Room Air O2 Flow Rate 2.00 2.00 01/02/23 01/02/23 01/02/23 01/02/23 01:00 03:45 03:48 05:51 Temp 36.3 Pulse 76 74 Resp 25 B/P (MAP) 126/46 (98) Pulse Ox 89 O2 Delivery Nasal Cannula Nasal Cannula O2 Flow Rate 2.00 2.00 01/02/23 01/02/23 07:00 07:50 Temp 36.5 Pulse 75 80 Resp 28 B/P (MAP) 152/59 (90) Pulse Ox 96 O2 Delivery Room Air 01/02/23 00:00 Intake Total 950 ml Output Total 575 ml Balance 375 ml Constitutional: AAO x 3, well-developed, well-nourished Respiratory: No accessory muscle use; chest expansion is symmetric, chest is bilaterally symmetric Cardiovascular: regular rate-rhythm, S1 and S2, systolic murmur (soft DAISY at card) Gastrointestional: No tender; soft; No guarding, No rebound; audible bowel sounds Extremities: No clubbing, No cyanosis, No significant edema Neurologic/Psychiatric: oriented x 3, other (moves all limbs equally) Skin: No rash on exposed areas, No ulcerations on exposed areas Results/Procedures: Labs Laboratory Tests 01/02/23 04:04: White Blood Count 7.3, Red Blood Count 4.61, Hemoglobin 13.9, Hematocrit 41, Mean Corpuscular Volume 89, Mean Corpuscular Hemoglobin 30, Mean Corpuscular Hemoglobin Concent 34, Red Cell Distribution Width 13.2, Platelet Count 231, Mean Platelet Volume 10.2, Immature Granulocyte % (Auto) 0, Neutrophils (%) (Auto) 59, Lymphocytes (%) (Auto) 21, Monocytes (%) (Auto) 6, Eosinophils (%) (Auto) 13H, Basophils (%) (Auto) 1, Neutrophils # (Auto) 4.3, Lymphocytes # (Auto) 1.5, Monocytes # (Auto) 0.5, Eosinophils # (Auto) 0.9H, Basophils # (Auto) 0.1, Immature Granulocyte # (Auto) 0.0, Neutrophils % (Manual) 52, Lymphocytes % (Manual) 23, Monocytes % (Manual) 8, Eosinophils % (Manual) 16, Basophils % (Manual) 0, Band Neutrophils 1, Blood Morphology Comment NORMAL, Sodium Level 143, Potassium Level 4.3, Chloride Level 114H, Carbon Dioxide Level 19L, Anion Gap 10, Blood Urea Nitrogen 41H, Creatinine 1.77H, Estimat Glomerular Filtration Rate 40, BUN/Creatinine Ratio 23, Glucose Level 105, Calcium Level 8.3L, Corrected Calcium 8.9, Total Bilirubin 0.5, Aspartate Amino Transf ( T/SGOT) 13, Alanine Aminotransferase (ALT/SGPT) 12, Alkaline Phosphatase 55, Total Protein 6.3L, Albumin 3.3 A/P: Assessment: Ac CHF, diastolic CHF, etiology undetermined - Echocardiogram of 12-31-22 showed mod concentric hypertrophy; LVEF 55-60%. Grade 2 diastolic dysfunction. LA mildly dilated. Mild MR. Mod AoR. PASP 40-45 mmHg - MPI on 01-01-23: no significant ischemia or infarction, mod cardiomegaly, LVEF 57% Mild troponin elevation, probably type 2 [place] due to CHF Pulmonary HTN - likely d/t AJAY (untreated) Hypertension Renal insufficiency of undetermined length of time - Cr improving Obesity with hypoventilation syndrome (family reports untreated AJAY) Plan: * Continue current regimen * Sleep studies advised as out pt * Ok to d/c from card standpoint. Outpt card f/u advised BIJAN VAUGHN MD FACP [facility] CCDS Jan 02, 2023 09:53
[2023-01-02] MEDS: ASPIRIN 325 MG (5 GR) TABLET PO SCH (10:35)
[2023-01-02] MEDS: meTOproloL SUCCINATE 50 MG (TOPROL XL) TAB PO SCH (10:35)
[2023-01-02] MEDS: amLODIPine 10 MG (NORVASC) TAB PO SCH (10:35)
--- NOTE | 2023-01-02 10:54 | Discharge Summary ---
Diagnosis/Chief Complaint Date of Admission Dec 30, 2022 at 19:22 Date of Discharge 01/02/23 Admission Diagnosis Admission Diagnosis See problem list Discharge Diagnosis See below Problems/Diagnosis: (1) Elevated brain natriuretic peptide (BNP) level Assessment & Plan: Possible new CHF, echo pending. CXR without abnormality and no peripheral edema. 01/01: Normal systolic function, Grade 2 diastolic dysfunction Status: Acute (2) Elevated troponin Assessment & Plan: Increasing, but with acute on chronic CKD and no ST elevation. Appreciate Cardiology recommendations. Started on aspirin. 01/01: Stress testing done today, awaiting results and cardiology recommendations Status: Acute (3) Hypertension Assessment & Plan: Resume home meds. Qualifiers: Qualified Codes: I10 - Essential (primary) hypertension Status: Chronic (4) Hyperlipidemia Status: Chronic (5) Obstructive sleep apnea Assessment & Plan: 01/02: Recommend sleep study for untreated AJAY Status: Chronic (6) CKD (chronic kidney disease) Assessment & Plan: Cr in clinic last 2 years from 1.4 to 1.6. 01/01: Seems to be mildly elevated from baseline Qualifiers: Qualified Codes: N18.32 - Chronic kidney disease, stage 3b Status: Chronic (7) DVT prophylaxis Assessment & Plan: Enoxaparin Status: Acute Chief Complaint/HPI Chief Complaint/HPI 77 yo male reports he came to the hospital because he was told to. he started not feeling well, initially thought he might have COVID, felt short of breath, low energy, no appetite. He had diarrhea as well. Next day he had similar symptoms. Went to urgent care and had EKG and CXR there that he reports were negative. [facility] told him that though they hadn't found anything he had symptoms concerning for possible heart issues and suggested he see his primary, which he wasn't able to get into due to being closed. He was gasping for air, and when he checked his SpO2 at home it was 96-98, occasionally as low as 93%, so he felt reassured by that. When he called his primary they couldn't get him in until Feb 05 and so he saw someone else on Friday (yesterday) and reported things were okay, but repeated CXR and EKG, hasn't heard report of CXR but was told EKG was different from the one on Friday so he was sent to the ER in [place] where he was told he had heart failure. He denies history of renal problems, but clinic chart does list CKD3. Discharge Summary-Simple/Stand Procedures Normal Stress testing Consultations Dr Arellano, Cardiology Discharge Physical Examination Allergies: Coded Allergies: No Known Drug Allergies (Unverified , 12/30/22) Vitals & I&Os Vital Sign - Last 12Hours Date Time Temp Pulse Resp B/P (MAP) Pulse Ox O2 Delivery O2 Flow Rate FiO2 01/02/23 07:50 36.5 80 28 152/59 (90) 96 Room Air 01/02/23 05:51 2.00 Intake and Output 01/02/23 00:00 Intake Total 950 ml Output Total 575 ml Balance 375 ml General Appearance: Alert, Oriented X3, No Acute Distress Respiratory: Clear to Auscultation, Normal Air Movement Cardiovascular: Regular Rate, No Murmurs Abdominal: Normal Bowel Sounds, Soft, No Tenderness, No Masses Extremities: No Edema, No Tenderness/Swelling Neuro: Normal Speech Hospital Course See final discharge diagnosis. Radiology Reviewed CXR: IMPRESSION: Negative chest Discharge Condition at discharge stable Instructions to patient/family Please see electronic discharge instructions given to patient. Discharge Medications Reviewed and agree with Discharge Medication list on patient's Discharge Instruction sheet JHONNY SHEPHERD MD Jan 02, 2023 10:54
--- NOTE | 2023-01-02 10:56 | Discharge Summary ---
Discharge [facility] Reconcile Patient Problems Problems Reviewed?: Yes Discharge Medications New, Converted or Re-Newed RX: Transmitted to Pharmacy New Medications: Aspirin (Aspirin) 81 Mg Tab.chew 81 MG PO DAILY, #30 TAB 5 Refills Continued Medications: Amlodipine Besylate (Amlodipine Besylate) 10 Mg Tablet 10 MG PO DAILY Aspirin (Aspirin EC) 81 Mg Tablet.dr 81 MG PO DAILY, TAB Lisinopril (Lisinopril) 40 Mg Tablet 40 MG PO DAILY Metoprolol Succinate (Metoprolol Succinate) 50 Mg Tab.er.24h 50 MG PO DAILY Patient Instructions Goal/Follow Up Appt: F/u 1 with Phyllis Parr Activity & Diet Discharge Diet: Cardiac Diet Activity as Tolerated: Yes JHONNY SHEPHERD MD Jan 02, 2023 10:56
== END 2023-01-02 11:18 | disposition home or self-care (01) ==
LOC: EDUNIT# 15:44 → ER FS 15:46 → UNDOADMOB 19:22 → CSD 19:22 → UNDODISOB 01-02 11:33
PROVIDERS: ADMIT Family Medicine; ATTEND Family Medicine
DX: I13.0 Hypertensive heart and chronic kidney disease with heart failure and stage 1 through stage 4 chronic kidney disease, or unspecified chronic kidney disease (principal); I50.31 Acute diastolic (congestive) heart failure; R77.8 Other specified abnormalities of plasma proteins; E78.5 Hyperlipidemia, unspecified; N18.32 Chronic kidney disease, stage 3b; I27.20 Pulmonary hypertension, unspecified; N28.9 Disorder of kidney and ureter, unspecified; E66.2 Morbid (severe) obesity with alveolar hypoventilation; Z87.891 Personal history of nicotine dependence; Z68.35 Body mass index [BMI] 35.0-35.9, adult
CPT/HCPCS: 36415; 71045; 78452; 80048 ×2; 80053 ×2; 83690; 83735; 83880; 84484 ×2; 85007; 85025; 85027 ×2; 85610; 85730; 93005 ×2; 93017; 93041; 96372 ×2; 99284; A9502; C8929; G0378; 93306

== ENCOUNTER 2023-01-04 05:49 | Emergency (ER) | payer MEDICARE, OTHER ==
[~2023-01-04] VITALS: Ht 180 cm; Wt 113.4 kg
[~2023-01-04 05:49] MED LIST: AMLO-251 PO; ASPI-1238 PO; ASPI-999 PO; LISI40TA9 PO; METO50TA7 PO
--- NOTE | 2023-01-04 06:23 | ED General ---
General Stated Complaint: SOB Source of Information: Patient, Old Records, Spouse (BILLY RIVERA MD) History of Present Illness Date Seen by Provider: Jan 04, 2023 Time Seen by Provider: 06:20 Initial Comments 77-year-old male with PMH of HTN/CHF, is here with complaints of shortness of breath since he was discharged from [facility] in [place] yesterday evening. Patient becomes short of breath upon walking short distances but also feels short of breath at rest. Patient is a non-smoker. Patient was admitted at [place] for an elevated troponin. Currently denies chest pain, palpitations, abdominal pain, nausea and vomiting, diaphoresis, headache or dizziness. (ARIANNA JAIMES MD) Allergies and Home Medications Allergies Coded Allergies: No Known Drug Allergies (Unverified , 12/30/22) Patient Home Medication List Home Medication List Reviewed: Yes (ARIANNA JAIMES MD) Amlodipine Besylate (Amlodipine Besylate) 10 Mg Tablet, 10 MG PO DAILY, (Reported) Entered as Reported by: TAURUS VARGAS on 12/31/22 1132 Aspirin (Aspirin EC) 81 Mg Tablet.dr, 81 MG PO DAILY, (Reported) Entered as Reported by: TAURUS VARGAS on 12/31/22 1138 Aspirin (Aspirin) 81 Mg Tab.chew, 81 MG PO DAILY Prescribed by: GHAZAL KENT on 01/02/23 0920 Furosemide (Furosemide) 20 Mg Tablet, 20 MG PO DAILY Prescribed by: BILLY RIVERA on 01/04/23 0856 Lisinopril (Lisinopril) 40 Mg Tablet, 40 MG PO DAILY, (Reported) Entered as Reported by: TAURUS VARGAS on 12/31/22 1132 Metoprolol Succinate (Metoprolol Succinate) 50 Mg Tab.er.24h, 50 MG PO DAILY, (Reported) Entered as Reported by: TAURUS VARGAS on 12/31/22 1132 Potassium Chloride (Potassium Chloride) 10 Meq Capsule.er, 10 MEQ PO DAILY Prescribed by: BILLY RIVERA on 01/04/23 0856 Review of Systems Review of Systems Constitutional: no symptoms reported EENTM: no symptoms reported Respiratory: short of breath Cardiovascular: no symptoms reported Gastrointestinal: no symptoms reported Genitourinary: no symptoms reported Musculoskeletal: no symptoms reported Skin: no symptoms reported Psychiatric/Neurological: No Symptoms Reported Hematologic/Lymphatic: No Symptoms Reported Immunological/Allergic: no symptoms reported (ARIANNA JAIMES MD) Past Itgcnjj-Mokfki-Lyhkvx Hx Past Medical History Surgery/Hospitalization HX: Hypertension (ARIANNA JAIMES MD) Family Medical History Heart Disease, Cancer (ARIANNA JAIMES MD) Physical Exam Vital Signs Vital Signs - First Documented (BILLY RIVERA MD) Vital Signs Capillary Refill : (ARIANNA JAIMES MD) Height, Weight, BMI Height: '" Weight: lbs. oz. kg; 35.65 BMI Method: General Appearance: WD/WN, Anxious, Mild Distress, Obese HEENT: PERRL/EOMI, Normal ENT Inspection Neck: Full Range of Motion Respiratory: Chest Non Tender, Lungs Clear, Normal Breath Sounds, No Accessory Muscle Use, No Respiratory Distress, Other (Patient is able to speak in complete sentences but he appears mildly breathless after speaking for a while.) Cardiovascular: Regular Rate, Rhythm, No Edema, No Gallop, No JVD Gastrointestinal: Normal Bowel Sounds, Non Tender, Soft, Distended (Abdomen appears large and distended however it is soft and bowel sounds can be heard) Extremity: Normal Range of Motion Neurologic/Psychiatric: Alert, Oriented x3, No Motor/Sensory Deficits Skin: Normal Color (ARIANNA JAIMES MD) Progress/Results/Core Measures Suspected Sepsis SIRS Temperature: Pulse: Respiratory Rate: Laboratory Tests 01/04/23 06:05: White Blood Count 8.0 Blood Pressure / Mean: Laboratory Tests 01/04/23 06:05: Creatinine 2.11H, INR Comment 1.0, Platelet Count 300, Total Bilirubin 0.5 (ARIANNA JAIMES MD) Results/Orders Lab Results Laboratory Tests Test 01/04/23 06:05 01/04/23 06:52 Range/Units White Blood Count 8.0 4.3-11.0 10^3/uL Red Blood Count 4.87 4.30-5.52 10^6/uL Hemoglobin 14.5 13.3-17.7 g/dL Hematocrit 44 40-54 % Mean Corpuscular Volume 91 80-99 fL Mean Corpuscular Hemoglobin 30 25-34 pg Mean Corpuscular Hemoglobin Concent 33 32-36 g/dL Red Cell Distribution Width 13.3 10.0-14.5 % Platelet Count 300 130-400 10^3/uL Mean Platelet Volume 10.0 9.0-12.2 fL Immature Granulocyte % (Auto) 0 % Neutrophils (%) (Auto) 69 42-75 % Lymphocytes (%) (Auto) 18 12-44 % Monocytes (%) (Auto) 5 0-12 % Eosinophils (%) (Auto) 7 0-10 % Basophils (%) (Auto) 1 0-10 % Neutrophils # (Auto) 5.5 1.8-7.8 10^3/uL Lymphocytes # (Auto) 1.5 1.0-4.0 10^3/uL Monocytes # (Auto) 0.4 0.0-1.0 10^3/uL Eosinophils # (Auto) 0.6 H 0.0-0.3 10^3/uL Basophils # (Auto) 0.0 0.0-0.1 10^3/uL Immature Granulocyte # (Auto) 0.0 0.0-0.1 10^3/uL Prothrombin Time 13.6 12.2-14.7 SEC INR Comment 1.0 0.8-1.4 Activated Partial Thromboplast Time 29 24-35 SEC D-Dimer 1.75 H 0.00-0.49 UG/ML Sodium Level 143 135-145 MMOL/L Potassium Level 4.3 3.6-5.0 MMOL/L Chloride Level 111 H 98-107 MMOL/L Carbon Dioxide Level 22 21-32 MMOL/L Anion Gap 10 5-14 MMOL/L Blood Urea Nitrogen 40 H 7-18 MG/DL Creatinine 2.11 H 0.60-1.30 MG/DL Estimat Glomerular Filtration Rate 32 BUN/Creatinine Ratio 19 Glucose Level 134 H 70-105 MG/DL Calcium Level 8.6 8.5-10.1 MG/DL Corrected Calcium 8.9 8.5-10.1 MG/DL Magnesium Level 2.7 H 1.6-2.4 MG/DL Total Bilirubin 0.5 0.1-1.0 MG/DL Aspartate Amino Transf (AST/SGOT) 20 5-34 U/L Alanine Aminotransferase (ALT/SGPT) 16 0-55 U/L Alkaline Phosphatase 68 40-136 U/L Troponin I < 0.30 <0.30 NG/ML Pro-B-Type Natriuretic Peptide 58700.0 H <450.0 PG/ML Total Protein 6.7 6.4-8.2 GM/DL Albumin 3.6 3.2-4.5 GM/DL Influenza Type A (RT-PCR) Not Detected Not Detecte Influenza Type B (RT-PCR) Not Detected Not Detecte SARS-CoV-2 RNA (RT-PCR) Not Detected Not Detecte (BILLY RIVERA MD) My Orders Orders - BILLY RIVERA MD Ns Iv 1000 Ml (Sodium Chloride 0.9%) (01/04/23 07:27) Iohexol Injection (Omnipaque 350 Mg/Ml 1 (01/04/23 08:00) Di Iv Start (Assessment) .IV start (01/04/23 07:50) Received Contrast (Hold Metformin- Contr (01/04/23 08:00) Ns (Ivpb) (Sodium Chloride 0.9% Ivpb Bag (01/04/23 08:00) Ct Angio Chest W (01/04/23 07:55) Rx-Albuterol Inhaler (Rx-Ventolin Hfa In (01/04/23 08:56) Nursing Communication (Order) (01/04/23 08:56) (BILLY RIVERA MD) Medications Given in ED Current Medications Medications Dose Ordered Sig/Lev Route Start Time Stop Time Status Last Admin Dose Admin Albuterol/ Ipratropium 3 ml ONCE ONCE INH 01/04/23 06:45 01/04/23 06:46 DC 01/04/23 06:47 3 ML Iohexol 100 ml ONCE ONCE IV 01/04/23 08:00 01/04/23 08:01 DC 01/04/23 08:12 100 ML Sodium Chloride 100 ml ONCE ONCE IV 01/04/23 08:00 01/04/23 08:01 DC 01/04/23 08:12 100 ML (BILLY RIVERA MD) Vital Signs/I&O 01/04/23 01/04/23 01/04/23 05:57 05:57 09:25 Temp 36.5 36.5 Pulse 77 71 Resp 26 22 B/P (MAP) 131/42 (71) 134/37 Pulse Ox 95 93 O2 Delivery Room Air Room Air Room Air (BILLY RIVERA MD) Vital Signs/I&O Capillary Refill : (ARIANNA JAIMES MD) Progress Note : Progress Note 1. SOB: - CXR: - CBC/ CMP/D-dimer - Troponin: - EKG: non-ischemic - Duo Neb x1 - Signed out to day physician for follow up of labs and imaging (ARIANNA JAIMES MD) Progress Note #1: Progress Note I assumed care of the patient at shift change from Dr. Jaimes. Patient had felt that he had improvement after breathing treatment. He was feeling like he was getting short of breath with exertion and when he was laying down. During the recent admission the encouraged him to get testing for obstructive sleep apnea. He states he has an appointment with his regular provider on next Friday to help arrange for a sleep study. He is maintaining oxygen saturation of 93 to 97% on room air. He has complete blood count with normal white blood cell count of 8. He had stable comprehensive metabolic profile with continued mild elevation of his BUN and creatinine to 40 and 2.1. He had negative troponin less than 0.3. His proBNP was decreased from Friday when it was over 17,000 and outs 89187. His swab to check for influenza and COVID were both negative. On his 1 view chest x-ray he did not have any acute infiltrate or mass. His coagulation studies were normal other than he did have an elevated D-dimer to 1.75. Since he had an increased risk for potential blood clot with his recent admission and decreased ambulation and activity will obtain a CT angiogram of the chest with IV contrast. Due to his chronic renal insufficiency will give normal saline 1 L IV fluid bolus to try and help hydrate his kidneys from the IV contrast. Since he had improvement with the breathing treatment if his CT angiograph does not show a pulmonary embolism then could try the patient on an inhaler with spacer for home. Progress Note #2: Time: 08:[address] angiography of the chest did not show any acute pulmonary embolism. He does have mild bilateral pleural effusion. Will trial low-dose Lasix for home in addition to an inhaler. Encouraged to check back with the clinic and if they can get him in sooner than Friday to follow-up from the hospital admission and ER visit. He may need to continue on the Lasix but will only give a short 5-day course for now along with low dose potassium 10 MEQ daily for 5 days. Sent with albuterol inhaler and spacer to use 2 puffs every 4 to 6 hours as needed for shortness of breath. Counseled to check with clinic and they may want him to see again sooner than January or may just start low dose diuretic beyond the 5 day burst I gave him h ere. . (BILLY RIVERA MD) ECG Initial ECG Impression Date: Jan 04, 2023 Initial ECG Impression Time: 06:19 Initial ECG Rate: 71 Initial ECG Rhythm: Normal Sinus Initial ECG Intervals: Normal Initial ECG Impression: Nonspecific Changes (ARIANNA JAIMES MD) Diagnostic Imaging Diagonstic Imaging: Xray Plain Films/CT/US/NM/MRI: chest (ARIANNA JAIMES MD) Comments [facility], [place] NAME: CHIOMA GOINSKHOI Streeter III MED REC#: [id number] PT STATUS: REG ER : 1945 PHYSICIAN: ARIANNA JAIMES MD ADMIT DATE: 01/04/23/ER FS Draft Date of Exam:01/04/23 CHEST 1 VIEW AP/PA ONLY EXAMINATION: Chest 1 view HISTORY: Short of breath COMPARISON: 12/30/2022 FINDINGS: There is some mild edema. No pleural effusion or pneumothorax. Heart size is normal. IMPRESSION: 1. Mild edema. Dictated on workstation # [id number] Dict: 01/04/23 0835 Trans: 01/04/23 0839 BASIL [id number] Interpreted by: JEAN EVERETT MD Electronically signed by: Reviewed: Reviewed by Me Diagonstic Imaging: CT Plain Films/CT/US/NM/MRI: chest (angiography) Comments NAME: ELISE GOINS Ferdinand III MED REC#: [id number] PT STATUS: REG ER : 1945 PHYSICIAN: BILLY RIVERA MD ADMIT DATE: 01/04/23/ER FS Draft Date of Exam:01/04/23 CT ANGIO CHEST W PROCEDURE: CT angiography of the chest with contrast. TECHNIQUE: Multiple contiguous axial images were obtained through the chest after uneventful bolus administration of intravenous contrast. 3D reconstructed CTA MIP acquisitions were also performed. Auto Exposure Controls were utilized during the CT exam to meet ALARA standards for radiation dose reduction. INDICATION: Shortness of air with elevated D-dimer. COMPARISON: No prior studies are available for comparison. Evaluation of the pulmonary arterial system is without evidence of thromboembolism. No definite filling defects are seen within central, lobar or segmental branches. The thoracic aorta is normal caliber. There is no dissection. No pericardial fluid is identified. There are moderate-sized bilateral pleural effusions. There is some compressive atelectasis in the bilateral lower lobes. Otherwise, the lungs are fairly clear. Upper abdomen demonstrates a small low-attenuation lesion in the right lobe of the liver, too small to characterize but likely a cyst. There is also a probable cyst in the upper pole of the right kidney. IMPRESSION: 1. No evidence of pulmonary embolism or acute aortic disease. 2. Moderate bilateral pleural effusions with bibasilar atelectasis. Dictated on workstation # [id number] Dict: 01/04/23 0831 Trans: 01/04/23 0842 [facility] [id number] Interpreted by: MORE PELAYO MD Electronically signed by: Reviewed: Reviewed by Me (BILLY RIVERA MD) Departure Impression Primary Impression: Dyspnea Qualified Codes: R06.00 - Dyspnea, unspecified Additional Impressions: Pleural effusion Ventricular diastolic dysfunction determined by echocardiography Disposition: 01 HOME, SELF-CARE Condition: Stable Departure-Patient Inst. Decision time for Depature: 08:53 (BILLY RIVERA MD) Referrals: [facility] [place] Primary Care Physician PIO DE LA CRUZ APRN (Family) Primary Care Physician Patient Instructions: Diastolic Heart Failure (DC), Heart Failure ED, How to Use a Metered Dose Inhaler ED, How to Use a Spacer, Shortness of Breath, Adult ED Add. Discharge Instructions: Your test today did not show any blood clots in the lungs. You do have a small amount of fluid in the base of your lungs secondary to the heart failure. Use the inhaler with spacer to try and help with shortness of breath. You can use 2 puffs every 4-6 hours as needed for shortness of breath. Take the low-dose Lasix, water pill, along with low-dose potassium to try and help with the fluid in the base of your lungs. Check with the clinic on Friday and see if they can get you in any sooner than Friday to follow-up about the heart failure as well as setting up for a sleep study for possible sleep apnea. Scripts Potassium Chloride (Potassium Chloride) 10 Meq Capsule.er 10 MEQ PO DAILY for Pleural effusion for 5 Days, #5 CAP 0 Refills Take with Furosemide. Prov: BILLY RIVERA MD 01/04/23 Furosemide (Furosemide) 20 Mg Tablet 20 MG PO DAILY for Pleural Effusion for 5 Days, #5 TAB 0 Refills Prov: BILLY RIVERA MD 01/04/23 ARIANNA JAIMES MD Jan 04, 2023 06:23 BILLY RIVERA MD Jan 04, 2023 08:51
[2023-01-04 06:36] LABS: BASOPHILS % (AUTO) 1 % (0-10); EOSINOPHILS # (AUTO) 0.6 10^3/uL (0.0-0.3); EOSINOPHILS % (AUTO) 7 % (0-10); HEMATOCRIT 44 % (40-54); HEMOGLOBIN 14.5 g/dL (13.3-17.7); LYMPHOCYTES # (AUTO) 1.5 10^3/uL (1.0-4.0); LYMPHOCYTES % (AUTO) 18 % (12-44); MEAN CORPUSCULAR HEMOGLOBIN 30 pg (25-34); MEAN CORPUSCULAR HGB CONC 33 g/dL (32-36); MEAN CORPUSCULAR VOLUME 91 fL (80-99); MONOCYTES # (AUTO) 0.4 10^3/uL (0.0-1.0); MONOCYTES % (AUTO) 5 % (0-12); NEUTROPHILS # (AUTO) 5.5 10^3/uL (1.8-7.8); NEUTROPHILS % (AUTO) 69 % (42-75); PLATELET COUNT 300 10^3/uL (130-400)
[2023-01-04 06:39] LABS: PROTHROMBIN TIME PATIENT 13.6 SEC (12.2-14.7)
[2023-01-04] MEDS ORDERED: RT-ALBUTEROL/IPRATROPIUM 3 ML (DUONEB) VIAL INH ONE (06:45)
[2023-01-04 06:46] LABS: BUN/CREATININE RATIO 19; CALCIUM 8.6 MG/DL (8.5-10.1); CARBON DIOXIDE 22 MMOL/L (21-32); CHLORIDE 111 MMOL/L (98-107); CREATININE SERUM 2.11 MG/DL (0.60-1.30); GFR ESTIMATED 32; GLUCOSE 134 MG/DL (70-105); POTASSIUM 4.3 MMOL/L (3.6-5.0); SODIUM 143 MMOL/L (135-145)
[2023-01-04 06:47] LABS: ALANINE AMINOTRANSFERASE 16 U/L (0-55); ALBUMIN 3.6 GM/DL (3.2-4.5); ALKALINE PHOSPHATASE 68 U/L (40-136); BILIRUBIN,TOTAL 0.5 MG/DL (0.1-1.0); MAGNESIUM 2.7 MG/DL (1.6-2.4); TOTAL PROTEIN 6.7 GM/DL (6.4-8.2)
[2023-01-04 06:49] LABS: FIBRIN DEGRADATION PRODUCTS 1.75 UG/ML (0.00-0.49)
[2023-01-04] MEDS ORDERED: NS IV 1000 ML 1,000 ML IV STA (07:27)
[2023-01-04] MEDS ORDERED: HOLD METFORMIN - RECEIVED CONTRAST 20 ML VIAL IV SCH (08:00)
[2023-01-04] MEDS ORDERED: IOHEXOL 350 MG/ML 100 ML (OMNIPAQUE 350) VIAL IV ONE (08:00)
[2023-01-04] MEDS ORDERED: NS 100 ML (IVPB) BAG IV ONE (08:00)
--- NOTE | 2023-01-04 08:40 | Diagnostic Imaging Report ---
EXAMINATION: Chest 1 view HISTORY: Short of breath COMPARISON: 12/30/2022 FINDINGS: There is some mild edema. No pleural effusion or pneumothorax. Heart size is normal. IMPRESSION: 1. Mild edema. Dictated by: Dictated on workstation # [id number]
--- NOTE | 2023-01-04 08:43 | Diagnostic Imaging Report ---
PROCEDURE: CT angiography of the chest with contrast. TECHNIQUE: Multiple contiguous axial images were obtained through the chest after uneventful bolus administration of intravenous contrast. 3D reconstructed CTA MIP acquisitions were also performed. Auto Exposure Controls were utilized during the CT exam to meet ALARA standards for radiation dose reduction. INDICATION: Shortness of air with elevated D-dimer. COMPARISON: No prior studies are available for comparison. Evaluation of the pulmonary arterial system is without evidence of thromboembolism. No definite filling defects are seen within central, lobar or segmental branches. The thoracic aorta is normal caliber. There is no dissection. No pericardial fluid is identified. There are moderate-sized bilateral pleural effusions. There is some compressive atelectasis in the bilateral lower lobes. Otherwise, the lungs are fairly clear. Upper abdomen demonstrates a small low-attenuation lesion in the right lobe of the liver, too small to characterize but likely a cyst. There is also a probable cyst in the upper pole of the right kidney. IMPRESSION: 1. No evidence of pulmonary embolism or acute aortic disease. 2. Moderate bilateral pleural effusions with bibasilar atelectasis. Dictated by: Dictated on workstation # [id number]
[2023-01-04] MEDS ORDERED: POTA10CA44 PO (08:56)
[2023-01-04] MEDS ORDERED: RX-ALBUTEROL INHALER 8.5 GM HFA (PROAIR) IH STA (08:56)
[2023-01-04] MEDS ORDERED: FURO20TA4 PO (08:56)
[2023-01-04 09:25] VITALS: BP 134/37
== END 2023-01-04 09:27 | disposition home or self-care (01) ==
LOC: EDUNIT# 05:49 → ER FS 05:50
DX: J90 Pleural effusion, not elsewhere classified (principal); I11.9 Hypertensive heart disease without heart failure; R79.89 Other specified abnormal findings of blood chemistry; R79.1 Abnormal coagulation profile; Z20.822 Contact with and (suspected) exposure to COVID-19
CPT/HCPCS: 36415; 71045; 71275; 80053; 83735; 83880; 84484; 85025; 85379; 85610; 85730; 87636; 93005; Q9967